=== PATIENT | male | born 1995 | race African-American/Black ===

== ENCOUNTER 2018-08-15 13:58 | Emergency (ER) | payer MEDICAID ==
[~2018-08-15] VITALS: Ht 172.7 cm; Wt 66.0 kg
[2018-08-15 14:01] VITALS: BP 141/75
== END 2018-08-15 14:54 | disposition home or self-care (01) ==
LOC: ER 13:58
DX: Z00.00 Encounter for general adult medical examination without abnormal findings (principal); Z90.89 Acquired absence of other organs
CPT/HCPCS: 99281